=== PATIENT | male | born 1965 | race Native Hawaiian/Other Pacific Islander ===

== ENCOUNTER 2016-03-29 08:17 | Outpatient (CLI) | payer BC | END 2016-03-29 19:11 | disposition home or self-care (01) | LOC: NM 08:17 | DX: R07.89 Other chest pain (principal); R53.83 Other fatigue | CPT/HCPCS: A9500 ==

== ENCOUNTER 2018-12-22 12:23 | Outpatient (CLI) | payer BC | END 2018-12-22 19:26 | disposition home or self-care (01) | LOC: MRI 12:23 | DX: M25.511 Pain in right shoulder (principal); M54.12 Radiculopathy, cervical region ==